=== PATIENT | female | born 1990 | race Caucasian/White ===

== ENCOUNTER 2018-04-22 08:17 | Day surgery (SDC) | payer BC ==
[~2018-04-22 08:17] MED LIST: ADVIL,NUPRIN,M200 MG PO; SPRINTEC1 EACH PO
[2018-04-22 09:00] VITALS: BP 131/79
[2018-04-22] MEDS ORDERED: IBUPROFEN800 MG PO (13:39)
[2018-04-22] MEDS ORDERED: ENDOCET 5-3251 EACH PO (13:39)
[2018-04-22 14:13] VITALS: BP 111/84
[2018-04-22 15:19] VITALS: BP 128/81
== END 2018-04-22 15:35 | disposition home or self-care (01) ==
LOC: SDC 08:17
PROC: 0UBC7ZX Excision of Cervix, Via Natural or Artificial Opening, Diagnostic (ICD-10-PCS; principal; 2018-04-22)
DX: D06.9 Carcinoma in situ of cervix, unspecified (principal)
CPT/HCPCS: 88305; 88307; J0171; J1100; J1885; J2250; J2405; J3010